=== PATIENT | male | born 1955 | race Caucasian/White ===

== ENCOUNTER 2016-03-14 13:27 | Emergency (ER) | payer OTHER ==
[2016-03-14 13:57] VITALS: RESP 18; TEMP 98
[2016-03-14] MEDS ORDERED: NS 1,000 ML IV ONE ×2 (15:04→15:28)
[2016-03-14] MEDS ORDERED: ONDANSETRON 4 MG/2 ML VIAL IVP ONE (15:28)
--- NOTE | 2016-03-14 15:46 | UCPHY ---
H & P Patient Type: Established Smoking Status: Former smoker HPI/ROS: CHIEF COMPLAINT: Alcohol abuse, dehydration, nausea HISTORY OF PRESENT ILLNESS: Reports 46 alcoholic drinks per day over the last 10 days. He reports a long history of alcoholism with intermittent periods of sobriety. Sober for the last few months until the past 10 days. No fever or chills. No chest pain or shortness of breath. No palpitations. No tremor. No seizure-like activity. Last intake of alcohol was 12:00 p.m. today. He is here because he wants IV fluid. No particular modifying factors for this. No other associated complaints and no modifying factors. REVIEW OF SYSTEMS: Ten systems reviewed and are negative unless otherwise noted in the HPI EXAMINATION General Appearance: Alert, no distress Head: normocephalic, atraumatic Eyes: Pupils equal and round, no conjunctival pallor or injection ENT, Mouth: Mucous membranes moist Neck: Normal inspection, supple, non-tender Respiratory: Lungs are clear to auscultation Cardiovascular: Regular rate and rhythm . No murmur Gastrointestinal: Abdomen is soft and nontender. No tympany, rigidity or rebound Neurological: A&O, nonfocal. No pronator drift. Negative Romberg. Strength is 5/5 in all limbs. No tremor or seizure-like activity Skin: Warm and dry, no rash Extremities: Nontender, no pedal edema Psychiatric: Mood and affect normal DIFFERENTIAL DIAGNOSES: Including but not limited to Chronic alcohol abuse, acute alcohol intoxication, acute alcohol abuse, nausea, dehydration MDM: 3:30 p.m. patient admits to 10 days of alcohol abuse, 4-6 drinks per day of mixed sources. He has no chest pain or shortness of breath. No palpitations. No seizure-like activity. He is here because he has been drinking too much wants to stop. He is little bit nauseated but no vomiting. No abdominal pain. His exam is normal without any seizure-like activity and no neuro deficits. We will administer IV fluid and Zofran and plan for discharge home with further medication. He has a primary care physician that he can see me also has a psychiatrist. He is resting comfortably in no acute distress 4:40 p.m. alcohol abuse without any signs of delirium tremens or withdrawal. He is in no acute distress with no tremor or seizure activity. Discharged home with oral medications as listed. Recommend follow up with primary care physician and psychiatrist for further care. Patient comfortable with this plan and discharged home in stable condition. SUPERVISION:This patient was independently evaluated without the aide of supervising physician. (Gutierrez Rogers) Constitutional: Initial Vital Signs Temperature (C) 36.6 C 03/14/16 13:54 Heart Rate 96 03/14/16 13:54 Respiratory Rate 18 03/14/16 13:54 Blood Pressure 200/81 H 03/14/16 13:54 O2 Sat (%) 95 03/14/16 13:54 O2 Delivery Mode Room Air Allergies/Adverse Reactions: cefaclor [From Ceclor] Allergy (Unknown, Verified 07/04/15 07:37) Home Medications: Medication Instructions Recorded Gabapentin 03/14/16 Lorazepam [Ativan] 1 mg PO Q8 PRN #6 tablet 03/14/16 Ondansetron Odt [Zofran Odt 4 mg 4 mg PO Q4 PRN #12 tab 03/14/16 (*)] Seroquel 03/14/16 MDM/Departure - [facility] Medications Given: Discontinued Medications Sodium Chloride (Ns) 1,000 mls @ 0 mls/hr IV ONCE ONE PRN Reason: Wide Open Stop: 03/14/16 15:05 Last Admin: 03/14/16 15:10 Dose: 1,000 mls Sodium Chloride (Ns) 1,000 mls @ 0 mls/hr IV ONCE ONE PRN Reason: Wide Open Stop: 03/14/16 15:29 Last Admin: 03/14/16 15:55 Dose: 1,000 mls Ondansetron HCl (Zofran) 8 mg IVP EDNOW ONE Stop: 03/14/16 15:29 Last Admin: 03/14/16 15:30 Dose: 8 mg ED Course/Re-evaluation: The patient was evaluated and managed by the Physician Blow Molding Machine Operator, Gutierrez Rogers. My co-signature indicates that I have reviewed this chart and I agree with the findings and plan of care as documented. I am the secondary supervising physician. (Ana Jones) - Depart Disposition: Home, Routine, Self-Care Clinical Impression: Alcohol abuse Instructions: Abuse of Alcohol (ED), At-Risk Alcohol Use (ED) Additional Instructions: follow-up with primary care physician and psychiatrist for further care. Return to the ER or urgent care for any signs or symptoms of alcohol withdrawal as we discussed Prescriptions: Lorazepam [Ativan] 1 mg PO Q8 PRN #6 tablet PRN Reason: Anxiety Ondansetron Odt [Zofran Odt 4 mg (*)] 4 mg PO Q4 PRN #12 tab PRN Reason: Nausea/Vomiting, Use 1st Referrals: Matias Zepeda MD [Primary Care Provider] - As per Instructions - PQRS PQRS Measurement: not applicable (Gutierrez Rogers)
[2016-03-14 16:15] VITALS: BP 143/87; PULSE 76; O2SAT 93
== END 2016-03-14 16:54 | disposition home or self-care (01) ==
LOC: CED 13:27
DX: F10.10 Alcohol abuse, uncomplicated (principal); E86.0 Dehydration; Z87.891 Personal history of nicotine dependence
CPT/HCPCS: 96361-PO; 96374-PO; G0463-PO; J2405

== ENCOUNTER 2016-04-15 17:31 | Emergency (ER) | payer OTHER ==
--- NOTE | 2016-04-15 17:42 | UCPHY ---
H & P Patient Type: Established HPI/ROS: CHIEF COMPLAINT: Alcohol wynn, dehydrated. HISTORY OF PRESENT ILLNESS: The patient is a 61 year old male with history of alcohol abuse here requesting fluids after recent alcohol binge. The patient states he goes on benders like this every few weeks. His last drink was at 2pm today. He states he usually drinks about 6 drinks throughout the day when binging. The patient has been an intermittently recovering alcoholic for the past 12 years. His longest time sober was for 6 months. The patient does not attend AA. He has a counselor that he has seen previously. REVIEW OF SYSTEMS: A ten point review of systems was performed and is negative with the exception of the items mentioned in the HPI. Source: Patient - Personal History Tetanus Vaccine Date: WITHIN 10 YRS - Medical/Surgical History Hx Asthma: No Hx Chronic Respiratory Disease: No Hx Diabetes: No Hx Cardiac Disease: No Hx Renal Disease: No Hx Cirrhosis: No Hx Alcoholism: Yes Hx HIV/AIDS: No Hx Splenectomy or Spleen Trauma: No Other PMH: anxiety, knee, NASAL SURG, ETOH W/D SEZIURES, PRE-HTN- ETOH - Family History Significant Family History: No pertinent family hx - Social History Smoking Status: Former smoker Alcohol Use: Heavy Drug Use: None Additional Social History: Retired, Former cigarette smoker. No drug use. Alcohol abuse. - Physical Exam Exam: General Appearance: Alert. Vital signs reviewed. BP 151/92. Eyes: Pupils equal and round, no conjunctival injection, no discharge. Anicteric. ENT, Mouth: Mucous membranes are dry, no oropharyngeal erythema or edema. Neck: No lymphadenopathy, supple. Respiratory: Lungs are clear to auscultation; no wheezes, rales, or rhonchi. Cardiovascular: Regular rate and rhythm; no murmur, rub, or gallop. Gastrointestinal: Abdomen is soft and nontender, no masses or organomegaly, bowel sounds normal. Skin: Warm and dry, no rashes on exposed skin, normal color. Back: Nontender to palpation over the thoracolumbar spine. No CVAT. Extremities: No lower extremity edema, no calf tenderness or swelling. Neurological: Alert and oriented. Moving all four extremities easily and equally. Psychiatric: Normal affect. Constitutional: Initial Vital Signs Temperature (C) 36.2 C 04/15/16 17:44 Heart Rate 94 03/07/17 17:44 Respiratory Rate 22 H 04/15/16 17:44 Blood Pressure 151/92 H 04/15/16 17:44 O2 Sat (%) 94 04/15/16 17:44 O2 Delivery Mode Room Air Allergies/Adverse Reactions: cefaclor [From Ceclor] Allergy (Unknown, Verified 07/04/15 07:37) Home Medications: Medication Instructions Recorded Gabapentin 03/14/16 Lorazepam [Ativan] 1 mg PO Q8 PRN #6 tablet 03/14/16 Ondansetron Odt [Zofran Odt 4 mg 4 mg PO Q4 PRN #12 tab 03/14/16 (*)] Seroquel 03/14/16 Medical Decision Making ED Course/Re-evaluation: IV was established. He is requesting IVF, which have helped him in the past after binging on alcohol. He has nausea and does not feel that he will tolerate adequate amounts of PO to re-hydrate. The patient received 1L normal saline. 6:30 p.m.. Patient re-evaluated. He has no new complaints. IV normal saline infusing. I do not suspect withdrawal as it is only a few hours since he last had an alcoholic beverage. His triage blood pressure was 151/92. He is aware that his blood pressure was high. I am recommending that he have his blood pressure recheck by his primary care physician within the next month. His volume depletion was treated with IVF. Differential Diagnosis: Considered a differential diagnosis that includes but is not limited to alcohol intoxication, volume depletion secondary to poor oral intake, and alcohol withdrawal. - Data Points Medications Given: Discontinued Medications Sodium Chloride (Ns) 1,000 mls @ 0 mls/hr IV ONCE ONE PRN Reason: Wide Open Stop: 04/15/16 17:50 Last Admin: 04/15/16 18:01 Dose: 1,000 mls Departure - Departure Disposition: Home, Routine, Self-Care Clinical Impression: Volume depletion Condition: Good Instructions: Abuse of Alcohol (ED) Additional Instructions: I am giving you AA information and information about [facility]--both of these are available for help at any time of day or night. Please arrange to see your counselor as soon as possible. Try to eat nutritiously and drink lots of fluids. Referrals: Matias Zepeda MD [Primary Care Provider] - As per Instructions AA Hotline [Outside] - As per Instructions [facility] 24 Hours [Outside] - As per Instructions - PQRS PQRS Measurement: 134: Depression screening and followup, PRIME MD-PHQ2 (12 years and older) Over the last 2 weeks, how often have you been bothered by any of the following problems? 1. Feeling down, depressed, or hopeless? 2. Little interest or pleasure in doing things? [Patient answered no to both 1 and 2] [Patient answered yes to at least 1, referred to PCP for further evaluation.] [Not done because] [altered mental status] [patient refused] [critically ill]. 130: Documentation of medications. [Reviewed all patient medications, doses, route and frequency.] [Unable to obtain meds due to] [critical illness] [altered mental status] [ patient did not know]. 226: Do you smoke? [Yes, counseled to stop.] [No.] 47: 65 and older: Advanced care planning. Patient designates surrogate decision maker as [parent] [spouse] [ ]. [Patient refused.] [Patient has advanced directive.] 51: 18 years old and older with diagnosis of COPD, spirometry performance. [Spirometry not performed; equipment not available.] [Patient has no history of COPD] 52: 18 years old and older with COPD and symptoms of COPD or FEV1<60% predicted prescribed a B Agonist. [Spirometry not performed; equipment not available.] Report Scribed for: Madeleine Smith Report Scribed by: Katie Rubio Date of Report: 04/15/16 Time of Report: 17:56 Physician Review and Approval Statement: 04/15/16 17:41 Portions of this note were transcribed by the lpn or medical assistant. I, Dr. Madeleine Smith, personally performed the history, physical exam, and medical decision- making; and confirmed the accuracy of the information in the transcribed note.
[2016-04-15 17:47] VITALS: PULSE 94
[2016-04-15] MEDS ORDERED: NS 1,000 ML IV ONE (17:49)
[2016-04-15 19:08] VITALS: BP 159/97; RESP 20; O2SAT 97
[2016-04-15 19:31] VITALS: TEMP 98.1
== END 2016-04-15 19:32 | disposition home or self-care (01) ==
LOC: CED 17:31
DX: E86.9 Volume depletion, unspecified (principal); F10.10 Alcohol abuse, uncomplicated
CPT/HCPCS: 96360-PO; G0463-PO

== ENCOUNTER 2016-05-24 18:34 | Emergency (ER) | payer OTHER ==
--- NOTE | 2016-05-24 18:44 | UCPHY ---
H & P Patient Type: Established Time Seen by Provider: 05/24/16 18:43 HPI/ROS: CHIEF COMPLAINT: Feels an exceptionally dry from binge drinking, nausea HISTORY OF PRESENT ILLNESS: This is a 61 year-old male who unfortunately has a longstanding history of binge drinking. In fact, in early March in early April he came in for somewhat similar history. He notes that he drinks heavily for 5 6 days. Then he seems to the right the ship, and have a sensation that he needs stop and is therefore somehow motivated to restart his Antabuse. He is there today. He notes that he is moderately nauseated which he gets when he stops drinking but has yet to attribute that to alcohol withdrawal. He does not experience alcohol related tremors and is able to eat. However he notes that he is quite dehydrated feeling a little weak in the knees when he stands up and dry mouth. Furthermore, he has remote history of a seizure. This was alcohol withdrawal related again as it occurred some 60 hours after he stopped alcohol drinking, but that was during a particularly bad time were is drinking for some 3 months. He has never supple had any alcohol withdrawal seizures.. Tonight well as nausea there is no abdominal pain. He has no pain with swallowing. He has no cough or phlegm. REVIEW OF SYSTEMS: Constitutional: No fever, no chills. Eyes: No discharge ENT: No sore throat. Cardiovascular: No chest pain, no palpitations. Respiratory: No cough, shortness of breath, or wheezing. Gastrointestinal: No nausea vomiting or diarrhea. No abdominal pain. Genitourinary: No hematuria or frequency. Musculoskeletal: No back pain. Skin: No rashes. Neurological: No headache. 10 point ROS otherwise negative Source: Patient - Personal History Tetanus Vaccine Date: WITHIN 10 YRS - Medical/Surgical History Hx Asthma: No Hx Chronic Respiratory Disease: No Hx Diabetes: No Hx Cardiac Disease: No Hx Renal Disease: No Hx Cirrhosis: No Hx Alcoholism: Yes Hx HIV/AIDS: No Hx Splenectomy or Spleen Trauma: No Other PMH: anxiety, knee, NASAL SURG, ETOH W/D SEZIURES, PRE-HTN- ETOH - Family History Significant Family History: No pertinent family hx - Social History Smoking Status: Former smoker (Quit 7 years ago) Alcohol Use: Heavy Drug Use: None - Physical Exam Exam: General Appearance: Alert, no distress. Afebrile. Normal phonation. No respiratory distress. Eyes: Pupils equal and round no pallor or injection. No icterus ENT, Mouth: Mucous membranes dry. Pharynx without erythema or exudate. TM Clear. Neck: No adenopathy. Supple. No JVD. Trachea in midline. Respiratory: There are no retractions, lungs are clear to auscultation. Cardiovascular: Regular rate and rhythm, no murmur. Abdomen: Soft and nontender, no masses, bowel sounds normal. No hepatomegaly. Neurological: Ox3. No motor weakness. Sensation intact. Gait nl. No tremor Skin: Warm and dry, no rashes. Musculoskeletal: No joint swelling. Extremities: No edema. Homans sign negative. No cords. Psychiatric: Normal affect. Patient is oriented X 3, there is no agitation goal-directed. No suicide ideation. Mood has been stable. Constitutional: Initial Vital Signs Temperature (C) 36.3 C 05/24/16 18:47 Heart Rate 76 05/24/16 18:47 Respiratory Rate 18 05/24/16 18:47 Blood Pressure 122/73 H 05/24/16 18:47 O2 Sat (%) 94 05/24/16 18:47 O2 Delivery Mode Room Air Allergies/Adverse Reactions: cefaclor [From Ceclor] Allergy (Unknown, Verified 07/04/15 07:37) Home Medications: Medication Instructions Recorded Gabapentin 03/14/16 LORazepam [Ativan] 1 mg PO Q8 PRN #6 tablet 03/14/16 Seroquel 03/14/16 Ondansetron Odt [Zofran Odt 4 mg 8 mg PO TID PRN #10 tab 05/24/16 (*)] chlordiazePOXIDE [Librium 25 mg 1 - 2 cap PO TID PRN #24 cap 05/24/16 (*)] Medical Decision Making - Diagnostics EKG Interpretation: EKG: Interpreted by me contemporaneously. Normal sinus rhythm. Heart rate [ 64 ]. QTc [ 429 ] STT segment: Normal T Waves: Normal Summary: Normal EKG ED Course/Re-evaluation: He received 2 L of IV fluids for volume depletion and dehydration He received Zofran for the nausea. Did request promethazine however as the lower seizure threshold we steered clear that. Electrolytes were stable though his anion gap was a little low. Magnesium was on the low side a range of normal Do believe his nausea is primarily from the alcohol withdrawal and best treated with Librium so as to forego any alcohol withdrawal seizures as well. Is been many years since his last seizure in the setting of more profound alcohol intoxication and abuse. Thereby his seizure risk is low and does not merit hospitalization. He is motivated, goal-directed, he does not require nor request any inpatient detoxification Differential Diagnosis: Diagnostic considerations include, but are not limited to, the following: Alcohol withdrawal, alcoholic gastritis, dehydration, binge drinking, depression - Data Points Laboratory Results: Laboratory Results 05/24/16 18:55 05/24/16 18:55 05/24/16 05/24/16 18:55 18:55 WBC 6.33 10^3/uL 10^3/uL (3.80-9.50) RBC 4.91 10^6/uL 10^6/uL (4.40-6.38) Hgb 15.5 g/dL g/dL (13.7-17.5) Hct 44.2 % % (40.0-51.0) MCV 90.0 fL fL (81.5-99.8) MCH 31.6 pg pg (27.9-34.1) MCHC 35.1 g/dL g/dL (32.4-36.7) RDW 12.7 % % (11.5-15.2) Plt Count 200 10^3/uL 10^3/uL (150-400) MPV 10.7 fL fL (8.7-11.7) Neut % (Auto) 62.0 % % (39.3-74.2) Lymph % (Auto) 30.5 % % (15.0-45.0) [place] % (Auto) 6.2 % % (4.5-13.0) Eos % (Auto) 0.8 % % (0.6-7.6) Baso % (Auto) 0.3 % % (0.3-1.7) Nucleat RBC Rel Count 0.0 % % (0.0-0.2) Absolute Neuts (auto) 3.93 10^3/uL 10^3/uL (1.70-6.50) Absolute Lymphs (auto) 1.93 10^3/uL 10^3/uL (1.00-3.00) Absolute Monos (auto) 0.39 10^3/uL 10^3/uL (0.30-0.80) Absolute Eos (auto) 0.05 10^3/uL 10^3/uL (0.03-0.40) Absolute Basos (auto) 0.02 10^3/uL 10^3/uL (0.02-0.10) Absolute Nucleated RBC 0.00 10^3/uL 10^3/uL (0-0.01) Immature Gran % 0.2 % % (0.0-1.1) Immature Gran # 0.01 10^3/uL 10^3/uL (0.00-0.10) Sodium 141 mEq/L mEq/L (134-144) Potassium 4.2 mEq/L mEq/L (3.5-5.2) Chloride 105 mEq/L mEq/L (97-110) Carbon Dioxide 24 mEq/l mEq/l (22-31) Anion Gap 12 mEq/L mEq/L (8-16) BUN 17 mg/dL mg/dL (7-23) Creatinine 0.7 mg/dL mg/dL (0.7-1.3) Estimated GFR > 60 Glucose 94 mg/dL mg/dL (70-100) Calcium 8.8 mg/dL mg/dL (8.5-10.4) Magnesium 1.8 mg/dL mg/dL (1.6-2.3) Medications Given: Discontinued Medications Sodium Chloride (Ns) 1,000 mls @ 0 mls/hr IV ONCE ONE PRN Reason: Wide Open Stop: 05/24/16 18:51 Last Admin: 05/24/16 18:59 Dose: 1,000 mls Magnesium Sulfate (Magnesium Sulf 2 Gm (Premix)) 50 mls @ 50 mls/hr IV ONCE ONE Stop: 05/24/16 20:11 Last Admin: 05/24/16 19:23 Dose: 50 mls Sodium Chloride (Ns) 1,000 mls @ 0 mls/hr IV ONCE ONE PRN Reason: As Directed Stop: 05/24/16 19:15 Last Admin: 05/24/16 20:20 Dose: 1,000 mls Ondansetron HCl (Zofran) 8 mg IVP ONCE ONE Stop: 05/24/16 19:13 Last Admin: 05/24/16 19:23 Dose: 8 mg Departure - Departure Disposition: Home, Routine, Self-Care Clinical Impression: History of alcohol withdrawal seizures, Dehydration, moderate Alcohol withdrawal Qualifiers: Complication of substance-induced condition: uncomplicated Qualified Code(s): F10.230 - Alcohol dependence with withdrawal, uncomplicated Condition: Good Instructions: Dehydration (ED), Alcohol Withdrawal (ED) Additional Instructions: Yes, you need to take extra fluids over the next 24 hours. Electrolytes like Gatorade her specially effective Librium for the nausea and to prevent any alcohol withdrawal seizures. For the 1st few days take it full dosing and then taper thereafter Zofran for nausea Your magnesium is somewhat low. For the next week take 1 tsp of milk of magnesia daily for the next 10 days Referrals: Matias Zepeda MD [Primary Care Provider] - As per Instructions Prescriptions: chlordiazePOXIDE [Librium 25 mg (*)] 1 - 2 cap PO TID PRN #24 cap PRN Reason: Nausea or tremor Ondansetron Odt [Zofran Odt 4 mg (*)] 8 mg PO TID PRN #10 tab PRN Reason: Nausea/Vomiting, Can'T Take Po - PQRS PQRS Measurement: NA
[2016-05-24 18:50] VITALS: TEMP 97.3
[2016-05-24] MEDS ORDERED: NS 1,000 ML IV ONE ×2 (18:50→19:14)
[2016-05-24] MEDS ORDERED: ONDANSETRON 4 MG/2 ML VIAL IVP ONE (19:12)
[2016-05-24] MEDS ORDERED: MAGNESIUM SULF 2 GM/WATER 50 ML IV ONE (19:12)
[2016-05-24 19:17] LABS: % IMMATURE GRANULYOCYTES 0.2 % (0.0-1.1); ABSOLUTE IMMATURE GRANULOCYTES 0.01 10^3/uL (0.00-0.10); ADD DIFF? NO; ADD MORPH? NO; ADD SCAN? NO; ATYPICAL LYMPHOCYTE FLAG 10 (0-99); FRAGMENT RBC FLAG 0 (0-99); HEMATOCRIT 44.2 % (40.0-51.0); HEMOGLOBIN 15.5 g/dL (13.7-17.5); LEFT SHIFT FLG 0 (0-99); LIPEMIA HEMOLYSIS FLAG 90 (0-99); MEAN CELL HEMOGLOBIN 31.6 pg (27.9-34.1); MEAN CELL HEMOGLOBIN CONCENTR. 35.1 g/dL (32.4-36.7); MEAN PLATELET VOLUME 10.7 fL (8.7-11.7); PLATELET CLUMPS FLAG 0 (0-99); PLATELET COUNT 200 10^3/uL (150-400); RED BLOOD CELL COUNT 4.91 10^6/uL (4.40-6.38); RED CELL DISTRIBUTION WIDTH 12.7 % (11.5-15.2)
[2016-05-24 19:23] LABS: ANION GAP 12 mEq/L (8-16); CALCIUM 8.8 mg/dL (8.5-10.4); CARBON DIOXIDE 24 mEq/l (22-31); CHLORIDE 105 mEq/L (97-110); CREATININE 0.7 mg/dL (0.7-1.3); GLOMERULAR FILTRATION RATE > 60; GLUCOSE 94 mg/dL (70-100); MAGNESIUM 1.8 mg/dL (1.6-2.3); POTASSIUM 4.2 mEq/L (3.5-5.2); SODIUM 141 mEq/L (134-144)
[2016-05-24 20:16] VITALS: RESP 16; O2SAT 93
[2016-05-24] MEDS ORDERED: CHLORDIAZEPOXIDE 25MG PREPK#6 BTL TAKEHOME ONE (20:36)
[2016-05-24] MEDS ORDERED: ONDANSETRON 4MG PREPACK#2 BTL TAKEHOME ONE (20:36)
--- NOTE | 2016-05-24 21:01 | CPEKG ---
Heart Rate: 64 RR Interval: 938 P-R Interval: 172 QRSD Interval: 104 QT Interval: 420 QTC Interval: 434 P Callery: 72 QRS Callery: 6 T Wave Callery: 12 EKG Severity - NORMAL ECG - EKG Impression: SINUS RHYTHM Electronically Signed By: Hussein Oliva 24-May-2016 21:09:18
[2016-05-24 21:39] VITALS: BP 133/84; PULSE 64
== END 2016-05-24 21:20 | disposition home or self-care (01) ==
LOC: CED 18:34
DX: F10.230 Alcohol dependence with withdrawal, uncomplicated (principal); E86.0 Dehydration; Z87.891 Personal history of nicotine dependence
CPT/HCPCS: 80048-PO; 83735-PO; 85025-PO; 93010-PO; 96361-PO; 96365-PO; 96375-PO; 99205-PO; G0463-PO; J2405

== ENCOUNTER 2016-08-14 06:08 | Emergency (ER) | payer OTHER ==
[2016-08-14] MEDS ORDERED: ONDANSETRON 4 MG/2 ML VIAL ONE (06:15)
[2016-08-14] MEDS ORDERED: NS 1,000 ML IV ONE ×2 (06:15→06:49)
[2016-08-14] MEDS ORDERED: ONDANSETRON 4 MG/2 ML VIAL IVP ONE ×2 (06:15→06:50)
[2016-08-14 06:19] VITALS: RESP 18
[2016-08-14 06:43] LABS: % IMMATURE GRANULYOCYTES 0.2 % (0.0-1.1); ABSOLUTE IMMATURE GRANULOCYTES 0.01 10^3/uL (0.00-0.10); ADD DIFF? NO; ADD MORPH? NO; ADD SCAN? NO; ATYPICAL LYMPHOCYTE FLAG 0 (0-99); FRAGMENT RBC FLAG 0 (0-99); HEMATOCRIT 41.6 % (40.0-51.0); HEMOGLOBIN 14.5 g/dL (13.7-17.5); LEFT SHIFT FLG 0 (0-99); LIPEMIA HEMOLYSIS FLAG 90 (0-99); MEAN CELL HEMOGLOBIN 30.9 pg (27.9-34.1); MEAN CELL HEMOGLOBIN CONCENTR. 34.9 g/dL (32.4-36.7); MEAN CELL VOLUME 88.5 fL (81.5-99.8); MEAN PLATELET VOLUME 10.3 fL (8.7-11.7); PLATELET CLUMPS FLAG 0 (0-99); PLATELET COUNT 231 10^3/uL (150-400); RED CELL DISTRIBUTION WIDTH 12.5 % (11.5-15.2)
[2016-08-14] MEDS ORDERED: MAG HYDROX/AL HYDROX/SIMETH 30 ML UDCUP PO ONE (06:51)
[2016-08-14 06:57] LABS: ALANINE AMINOTRANSFERASE 32 IU/L (21-72); ALBUMIN 3.8 g/dL (3.5-5.0); ALKALINE PHOSPHATASE 50 IU/L (38-126); ANION GAP 14 mEq/L (8-16); ASPARTATE AMINOTRANSFERASE 29 IU/L (17-59); BILIRUBIN,TOTAL 0.5 mg/dL (0.1-1.4); BILIRUBIN-CONJUGATED 0.2 mg/dL (0.0-0.5); BILIRUBIN-UNCONJUGATED 0.3 mg/dL (0.0-1.1); CALCIUM 8.7 mg/dL (8.5-10.4); CARBON DIOXIDE 24 mEq/l (22-31); CHLORIDE 105 mEq/L (97-110); CREATININE 0.9 mg/dL (0.7-1.3); GLOMERULAR FILTRATION RATE > 60; GLUCOSE 134 mg/dL (70-100); POTASSIUM 3.6 mEq/L (3.5-5.2); SODIUM 143 mEq/L (134-144); TOTAL PROTEIN 6.5 g/dL (6.3-8.2)
--- NOTE | 2016-08-14 07:01 | EDPHY ---
H & P Time Seen by Provider: 08/14/16 06:26 HPI/ROS: This 61-year-old male with past medical history of alcohol abuse, borderline hypertension, high cholesterol. Presents emergency department today feeling dehydrated and nauseated after drinking a 6 drinks per day over the last 4 days. He states he this is a "maintenance drinker" and spreads these 6 drinks over the course of the day and never really binge drinks. He states he has been in a protracted withdrawal syndrome for a few months now feeling very fatigued. He has had a seizure only 1 time during withdrawal and that was about 2 years ago. He was in a detox program 11 years ago. Currently he is working with an addiction counselor by the name of Mookie Cristobal as well as a psychiatrist by the name of Patrick Fishman. He has used Antabuse in the past and was able to abstain for 6 months. He states his drinking has increased since the start of this year. He states he had a normal upper and lower endoscopy and a normal abdominal ultrasound in the last 2 years. He denies fever, chills, dizziness, tremors, vomiting, chest pain, abdominal pain, black or tarry stool. No recent illness. Denies other substance abuse. No family history of substance abuse. ROS: The remainder of the 10 point review of systems in normal. Past Medical/Surgical History: PMH includes elevated cholesterol, borderline hypertension, alcohol abuse Past surgical history includes nasal surgery and knee surgery Family history mother has type 1 diabetes, father good health Allergies: Ceclor causes hives Medications: Gabapentin 300 mg 6 times a day Seroquel 12.5 mg at HS Social History: Denies tobacco products (former smoker); heavy alcohol use and admits to starting ETOH use at the age of 19 y/o; denies other substance abuse. . Smoking Status: Former smoker Physical Exam: General: Alert and oriented x3, slightly anxious HEENT: Normocephalic, atraumatic, pupils equally round reactive to light and accommodation, conjunctiva clear, oropharynx clear without erythema or exudate, mucosa moist Neck: Supple, nontender Heart: Regular rate and rhythm, no murmurs, gallops, or rubs Lungs: Clear to auscultation bilaterally, no rales, rhonchi or wheezing Abdomen: Protuberant, soft, nontender, normal bowel sounds, no pulsatile masses Extremities: No clubbing, cyanosis, or edema Neurologic exam: Cranial nerves 2-12 grossly intact, moves all extremities well , nonfocal exam Constitutional: Initial Vital Signs Temperature (C) 98.1 F 08/14/16 06:15 Heart Rate 84 08/14/16 06:15 Respiratory Rate 18 08/14/16 06:15 Blood Pressure 175/96 H 08/14/16 06:15 O2 Sat (%) 92 08/14/16 06:15 O2 Delivery Mode Room Air Allergies/Adverse Reactions: cefaclor [From Ceclor] Allergy (Unknown, Verified 07/04/15 07:37) Home Medications: Medication Instructions Recorded Gabapentin 03/14/16 Seroquel 03/14/16 LORazepam [Ativan (*)] 1 mg PO Q8H PRN #6 tab 08/14/16 Promethazine HCl 25 mg PO Q6H PRN #12 tablet 08/14/16 Medical Decision Making ED Course/Re-evaluation: The patient was seen examined, vital signs were reviewed. He is slightly hypertensive and was urged to follow up with his medical provider for this and continued medical surveillance. He was given 2 L of IV fluids, 2 doses of Zofran, and a dose of Maalox. The patient was hoping to get a dose of Phenergan but he is driving himself therefore he will be given a prescription for Phenergan at discharge. He will also be given 6 tablets of lorazepam 1 mg to take every 8 hours as needed for withdrawal symptoms or anxiety. He was encouraged to step up his efforts in abstaining from alcohol and will coordinate this with his addiction counselor, Mookie Cristobal, and his psychiatrist, Patrick Fishman. He was given a packet of resources at discharge is well including numbers for the [facility] in [place], [facility], and [facility]. The patient is still in the department at the end of my shift and Dr. Carver will re-evaluate the patient before discharge. Differential Diagnosis: Differential diagnosis includes but is not limited to alcohol withdrawal, alcohol dependence, anxiety, dehydration, electrolyte abnormality, pancreatitis , anemia, gastritis Care Turn Over: [address] Carver - Data Points Laboratory Results: Laboratory Results 08/14/16 06:35 08/14/16 08/14/16 06:35 06:35 WBC 5.14 10^3/uL 10^3/uL (3.80-9.50) RBC 4.70 10^6/uL 10^6/uL (4.40-6.38) Hgb 14.5 g/dL g/dL (13.7-17.5) Hct 41.6 % % (40.0-51.0) MCV 88.5 fL fL (81.5-99.8) MCH 30.9 pg pg (27.9-34.1) MCHC 34.9 g/dL g/dL (32.4-36.7) RDW 12.5 % % (11.5-15.2) Plt Count 231 10^3/uL 10^3/uL (150-400) MPV 10.3 fL fL (8.7-11.7) Neut % (Auto) 60.6 % % (39.3-74.2) Lymph % (Auto) 30.0 % % (15.0-45.0) Jack % (Auto) 8.0 % % (4.5-13.0) Eos % (Auto) 1.0 % % (0.6-7.6) Baso % (Auto) 0.2 % L % (0.3-1.7) Nucleat RBC Rel Count 0.0 % % (0.0-0.2) Absolute Neuts (auto) 3.12 10^3/uL 10^3/uL (1.70-6.50) Absolute Lymphs (auto) 1.54 10^3/uL 10^3/uL (1.00-3.00) Absolute Monos (auto) 0.41 10^3/uL 10^3/uL (0.30-0.80) Absolute Eos (auto) 0.05 10^3/uL 10^3/uL (0.03-0.40) Absolute Basos (auto) 0.01 10^3/uL L 10^3/uL (0.02-0.10) Absolute Nucleated RBC 0.00 10^3/uL 10^3/uL (0-0.01) Immature Gran % 0.2 % % (0.0-1.1) Immature Gran # 0.01 10^3/uL 10^3/uL (0.00-0.10) Sodium Pending Potassium Pending Chloride Pending Carbon Dioxide Pending Anion Gap Pending BUN Pending Creatinine Pending Estimated GFR Pending Glucose Pending Calcium Pending Magnesium Pending Total Bilirubin Pending Conjugated Bilirubin Pending Unconjugated Bilirubin Pending AST Pending ALT Pending Alkaline Phosphatase Pending Total Protein Pending Albumin Pending Lipase Pending Medications Given: Discontinued Medications Sodium Chloride (Ns) 1,000 mls @ 0 mls/hr IV ONCE ONE; Wide Open PRN Reason: Protocol Stop: 08/14/16 06:16 Last Admin: 08/14/16 06:30 Dose: 1,000 mls Ondansetron HCl (Zofran) 4 mg IVP EDNOW ONE Stop: 08/14/16 06:16 Last Admin: 08/14/16 06:30 Dose: 4 mg Departure - Departure Disposition: Home, Routine, Self-Care Clinical Impression: Alcohol abuse, Nausea alone, Gastritis due to alcohol without hemorrhage Condition: Good Instructions: Gastritis (ED), Abuse of Alcohol (ED), Alcohol Use Disorder (ED) , Lorazepam (By mouth), Promethazine (By mouth) Additional Instructions: Follow-up with your primary care provider regarding your elevated blood pressure and for other healthcare maintenance needed. If your nausea persist they may recommend medical management and repeat endoscopy. Follow-up with your addiction counselor, Mookie Cristobal, as well as your psychiatrist, Patrick Fishman, within the next week. You need to come up with more aggressive plan for abstaining from alcohol. We have given you resources to a number of outpatient facilities including the [facility]) in [place], [place] as well as the [facility] in [place], [place] and [facility]. Referrals: Matias Zepeda MD [[facility] Primary Care Provider] - 5-7 days, call for appt. (Call today to arrange follow up with your primary care provider in the next week to ten days.) Prescriptions: LORazepam [Ativan (*)] 1 mg PO Q8H PRN #6 tab PRN Reason: Ciwa Score 6 - 11 Promethazine HCl 25 mg PO Q6H PRN #12 tablet PRN Reason: Nausea/Vomiting, Use 1st
[2016-08-14 08:16] VITALS: BP 151/88; PULSE 69; TEMP 97.9; O2SAT 95
== END 2016-08-14 08:13 | disposition home or self-care (01) ==
LOC: CED 06:08
DX: K29.20 Alcoholic gastritis without bleeding (principal); F10.10 Alcohol abuse, uncomplicated; E86.9 Volume depletion, unspecified; Z87.891 Personal history of nicotine dependence
CPT/HCPCS: 80048-PO; 80076-PO; 83690-PO; 83735-PO; 85025-PO; 96374; J2405